=== PATIENT | male | born 2000 | race Caucasian/White ===

== ENCOUNTER → 2020-07-29 | Outpatient (REF) | payer OTHER ==
[2020-07-29 17:19] LABS: AMORPHOUS SEDIMENT SMALL (NEGATIVE); APPEARANCE, URINE CLEAR (CLEAR); BACTERIA, URINE AUTO NEGATIVE (NEGATIVE); BILIRUBIN, URINE AUTO NEGATIVE (NEGATIVE); BLOOD, URINE BLOOD NEGATIVE (NEGATIVE); COLOR, URINE YELLOW (YELLOW); GLUCOSE, URINE (UA) AUTO NEGATIVE (NEGATIVE); KETONE, URINE AUTO NEGATIVE (NEGATIVE); LEUKOCYTE ESTERASE, URINE AUTO NEGATIVE (NEGATIVE); NITRITE, URINE AUTO NEGATIVE (NEGATIVE); PROTEIN, URINE AUTO NEGATIVE (NEGATIVE); RBC, URINE AUTO 0 /HPF (0-3); SQUAMOUS EPITHELIAL CELL UR AU 0 /HPF (0-6); UROBILINOGEN, URINE AUTO 0.2 mg/dL (0.0-2.0); WBC, URINE AUTO 1 /HPF (0-3)
== END ==
LOC: M LAB REF 16:31
PROVIDERS: ATTEND Physician Assistant
DX: N39.0 Urinary tract infection, site not specified (principal)

== ENCOUNTER 2021-01-10 16:25 | Emergency (ER) | payer OTHER ==
[~2021-01-10] VITALS: Ht 182.9 cm; Wt 83.3 kg
[2021-01-10 16:26] VITALS: BP 131/80
== END 2021-01-10 21:23 | disposition home or self-care (01) ==
LOC: M ED 16:25
DX: S61.002A Unspecified open wound of left thumb without damage to nail, initial encounter (principal); W23.0XXA Caught, crushed, jammed, or pinched between moving objects, initial encounter; Y92.9 Unspecified place or not applicable; Y93.9 Activity, unspecified; Y99.0 Civilian activity done for income or pay; Z88.0 Allergy status to penicillin

== ENCOUNTER → 2021-02-03 | Outpatient (CLI) | payer SELFPAY | LOC: M LABSMTC 10:15 | PROVIDERS: ATTEND Pediatrics | DX: Z11.52 Encounter for screening for COVID-19 (principal) ==

== ENCOUNTER 2022-02-28 09:04 | Emergency (ER) | payer OTHER ==
[~2022-02-28] VITALS: Ht 182.9 cm; Wt 73.5 kg
[2022-02-28 13:29] VITALS: BP 134/75
== END 2022-02-28 13:30 | disposition home or self-care (01) ==
LOC: M ED 09:04
DX: S00.83XA Contusion of other part of head, initial encounter (principal); S60.221A Contusion of right hand, initial encounter; Y04.2XXA Assault by strike against or bumped into by another person, initial encounter; Y07.9 Unspecified perpetrator of maltreatment and neglect; Y92.830 Public park as the place of occurrence of the external cause; J32.9 Chronic sinusitis, unspecified; Z88.0 Allergy status to penicillin